=== PATIENT | female | born 1990 | race Caucasian/White ===

== ENCOUNTER 2017-02-09 16:11 | Emergency (ER) | payer OTHER ==
[2017-02-09 16:19] VITALS: BP 130/87
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
== END 2017-02-09 17:20 | disposition home or self-care (01) ==
LOC: ER 16:11
DX: M54.89 Other dorsalgia (principal); V89.2XXA Person injured in unspecified motor-vehicle accident, traffic, initial encounter
CPT/HCPCS: 99283

== ENCOUNTER → 2018-12-16 | Outpatient (CLI) | payer BC ==
--- NOTE | 2018-12-16 16:10 | RADIOLOGY REPORT (SQ) ---
EXAM DESCRIPTION: HYSTEROSALPINGOGRAM; HYSTERO CATH/INJECTION COMPLETED DATE/TIME: 12/16/2018 3:56 pm REASON FOR STUDY: INFERTILITY COMPARISON: None. PROCEDURE: PRE-PROCEDURE: Procedure was explained to the patient. She was told to expect cramping du ring the procedure, and possible spotting post procedure. PROCEDURE: The cervix was prepped in sterile fashion. Under direct visual inspection, the cervix was cannulated with the hysterosalpingogram catheter and contrast injected. TECHNIQUE: Temporal fluoroscopic images acquired during the procedure stored to PACS. FLUOROSCOPY TIME: Less than 3 seconds 8 digital fluoroscopic images saved to PACS. LIMITATIONS: None. FINDINGS: UTERUS: No identified anomalies. No synechia. RIGHT ADNEXA: Normal size fallopian tube. Free spill of contrast into the peritoneal cavity. LEFT ADNEXA: Normal size fallopian tube. Free spill of contrast into the peritoneal cavity. POST PROCEDURE: The patient tolerated the procedure with no adverse effects. IMPRESSION: NORMAL HYSTEROSALPINGOGRAM. COMMENT: Quality ID 145: Final reports for procedures using fluoroscopy that document radiation exp osure indices, or exposure time and number of fluorographic images (if radiation exposure indices are not available) TECHNICAL DOCUMENTATION: JOB ID: [id number] [employer]- All Rights Reserved Reading location - IP/workstation name: [email or web address]
--- NOTE | 2018-12-16 16:10 | RADIOLOGY REPORT (SQ) ---
EXAM DESCRIPTION: HYSTEROSALPINGOGRAM; HYSTERO CATH/INJECTION COMPLETED DATE/TIME: 12/16/2018 3:56 pm REASON FOR STUDY: INFERTILITY COMPARISON: None. PROCEDURE: PRE-PROCEDURE: Procedure was explained to the patient. She was told to expect cramping du ring the procedure, and possible spotting post procedure. PROCEDURE: The cervix was prepped in sterile fashion. Under direct visual inspection, the cervix was cannulated with the hysterosalpingogram catheter and contrast injected. TECHNIQUE: Temporal fluoroscopic images acquired during the procedure stored to PACS. FLUOROSCOPY TIME: Less than 3 seconds 8 digital fluoroscopic images saved to PACS. LIMITATIONS: None. FINDINGS: UTERUS: No identified anomalies. No synechia. RIGHT ADNEXA: Normal size fallopian tube. Free spill of contrast into the peritoneal cavity. LEFT ADNEXA: Normal size fallopian tube. Free spill of contrast into the peritoneal cavity. POST PROCEDURE: The patient tolerated the procedure with no adverse effects. IMPRESSION: NORMAL HYSTEROSALPINGOGRAM. COMMENT: Quality ID 145: Final reports for procedures using fluoroscopy that document radiation exp osure indices, or exposure time and number of fluorographic images (if radiation exposure indices are not available) TECHNICAL DOCUMENTATION: JOB ID: [id number] [employer]- All Rights Reserved Reading location - IP/workstation name: [email or web address]
== END ==
LOC: RAD 15:12
PROVIDERS: ATTEND Student in an Organized Health Care Education/Training Program
DX: N97.9 Female infertility, unspecified (principal)
CPT/HCPCS: 58340; 74740

== ENCOUNTER → 2019-01-08 | Outpatient (CLI) | payer BC ==
--- NOTE | 2019-01-08 09:50 | RADIOLOGY REPORT (SQ) ---
EXAM DESCRIPTION: CT ABD/PELVIS WITH IV ORAL COMPLETED DATE/TIME: 01/08/2019 9:27 am REASON FOR STUDY: OVARIAN MASS COMPARISON: 2016 CT. Ultrasound pelvis 2012. TECHNIQUE: CT scan of the abdomen and pelvis performed with intravenous and oral contrast using ivet mark scanning technique with dynamic intravenous contrast injection. Images reviewed with lung, soft t issue, and bone windows. Reconstructed coronal and sagittal MPR images reviewed. Delayed images for e valuation of the urinary system also acquired. All images stored on PACS. All CT scanners at this facility use dose modulation, iterative reconstruction, and/or weight based d osing when appropriate to reduce radiation dose to as low as reasonably achievable (ALARA). [facility]: Dose Right [facility]: CareDose [facility]: Dose Right [facility]: Teradose 4D [facility]: Brazzlebox CONTRAST TYPE AND DOSE: contrast/concentration: Isovue 350.00 mg/ml; Total Contrast Delivered: 78.0 ml; Total Saline Delivered: 67.0 ml RENAL FUNCTION: None required. The patient is less than 50 years old. RADIATION DOSE: CT Rad equipment meets quality standard of care and radiation dose reduction techniq ues were employed. CTDIvol: 4.5 - 5.1 mGy. DLP: 523 mGy-cm.. LIMITATIONS: None. FINDINGS: LOWER CHEST: No significant findings. No nodules or infiltrates. LIVER: Normal size. No masses. No dilated ducts. SPLEEN: Normal size. No focal lesions. PANCREAS: No masses. No significant calcifications. No adjacent inflammation or peripancreatic fluid collections. Pancreatic duct not dilated. GALLBLADDER: No identified stones by CT criteria. No inflammatory changes to suggest cholecystitis. ADRENAL GLANDS: No significant masses or asymmetry. RIGHT KIDNEY AND URETER: No solid masses. No significant calcification. No hydronephrosis or hydroure ter. LEFT KIDNEY AND URETER: Nonobstructive mid renal nephrolithiasis, sub 4 mm stone. No mass. AORTA AND VESSELS: No aneurysm. No dissection. Renal arteries, SMA, celiac without stenosis. RETROPERITONEUM: No evidence of retroperitoneal mass or adenopathy. BOWEL AND PERITONEAL CAVITY: Large amount of stool in the proximal 2/3 of the colon. No small bowel obstruction. No ascites or abnormal gas. APPENDIX: Normal. PELVIS: Bladder unremarkable. Chronic left ovarian mass measures up to 4.7 cm maximal dimension. In ternal Hounsfield units of the lowest density portion approach 40. This lesion was present on prior study but had more simple Hounsfield units suggesting cystic nature previously. Small adjacent folli cles are likely. No pelvic free fluid. ABDOMINAL WALL: No masses. No hernias. BONES: No significant or acute findings. OTHER: No other significant finding. IMPRESSION: 1. Left ovarian region mass is chronic, seen in 2016. At that time, this looks like a simple cyst. On today's study, however this is not clearly a simple cyst. If the patient has not had recent pelvi c ultrasound, this would be warranted to further evaluate and characterize. 2. Other findings as above. Includes chronic nonobstructive left nephrolithiasis. There is also con siderable stool retention. No ascites, urinary obstruction or bowel obstruction evident. TECHNICAL DOCUMENTATION: JOB ID: [id number] Quality ID # [id number]: Final reports with documentation of one or more dose reduction techniques (e.g., Au tomated exposure control, adjustment of the mA and/or kV according to patient size, use of iterative reconstruction technique) 2010 [employer]- All Rights Reserved Reading location - IP/workstation name: [email or web address]
== END ==
LOC: RAD 08:50
PROVIDERS: ATTEND Student in an Organized Health Care Education/Training Program
DX: R19.09 Other intra-abdominal and pelvic swelling, mass and lump (principal); N97.9 Female infertility, unspecified
CPT/HCPCS: 74177

== ENCOUNTER 2019-01-30 05:32 | Day surgery (SDC) | payer BC ==
[2019-01-24 12:09] LABS: APPEARANCE,URINE CLEAR; BILIRUBIN,URINE NEGATIVE (NEGATIVE); COLOR,URINE YELLOW; GLUCOSE, URINE NEGATIVE (NEGATIVE); KETONES,URINE NEGATIVE (NEGATIVE); LEUKOCYTE ESTERASE,URINE NEGATIVE (NEGATIVE); NITRITE,URINE NEGATIVE (NEGATIVE); PROTEIN,URINE NEGATIVE (NEGATIVE); URINE SPECIFIC GRAVITY 1.013; UROBILINOGEN,URINE NEGATIVE mg/dL (<2.0)
[2019-01-24 12:15] LABS: HEMATOCRIT 42.5 % (36.0-47.0); HEMOGLOBIN 14.7 g/dL (12.0-15.5); MEAN CORPUSCULAR HEMOGLOBIN 29.2 pg (27.0-33.4); MEAN CORPUSCULAR HGB CONC 34.5 g/dL (32.0-36.0); MEAN CORPUSCULAR VOLUME 85 fl (80-97); PLATELET COUNT 227 10^3/uL (150-450); RED BLOOD COUNT 5.03 10^6/uL (3.72-5.28); RED CELL DISTRIBUTION WIDTH 12.6 % (11.5-14.0); WHITE BLOOD COUNT 5.3 10^3/uL (4.0-10.5)
[~2019-01-30 05:32] MED LIST: LIDOCAINE 0.5% INJ-PF (5 MG/ML) 50 ML SDV SUBCUT PRN; SCOPOLAMINE HYDROBROMIDE 1.5 MG PATCH.TD72 ONE; SCOPOLAMINE HYDROBROMIDE 1.5 MG PATCH.TD72 TD PRN
[2019-01-30] MEDS ORDERED: FENTANYL CITRATE INJ/PF 100 MCG/2 ML AMPUL ONE (06:56)
[2019-01-30] MEDS ORDERED: PROPOFOL INJ 200 MG/20 ML VIAL IV ONE (06:56)
[2019-01-30] MEDS ORDERED: ACETAMINOPHEN 1,000 MG/100 ML RTUPB IV ONE (06:56)
[2019-01-30] MEDS ORDERED: PROMETHAZINE HCL INJ 25 MG/1 ML VIAL ONE (06:56)
[2019-01-30] MEDS ORDERED: MIDAZOLAM 2 MG/2 ML INJ ONE (06:56)
[2019-01-30] MEDS ORDERED: HYDROMORPHONE HCL INJ/PF 2 MG/ML AMPULE ONE (06:56)
[2019-01-30] MEDS ORDERED: LIDOCAINE 2% INJ (20 MG/ML) 20 ML MDV ONE (06:57)
[2019-01-30] MEDS ORDERED: FENTANYL CITRATE INJ/PF 100 MCG/2 ML AMPUL IV PRN ×3 (07:53)
[2019-01-30] MEDS ORDERED: DIPHENHYDRAMINE HCL 50 MG/ML VIAL IV PRN (07:53)
[2019-01-30] MEDS ORDERED: PROMETHAZINE HCL INJ 25 MG/1 ML VIAL IV PRN ×2 (07:53)
[2019-01-30] MEDS ORDERED: MORPHINE SULFATE 10 MG/ML INJ IV PRN (07:53)
[2019-01-30] MEDS ORDERED: ONDANSETRON HCL INJ/PF 4 MG/2 ML SDV IV PRN (07:53)
[2019-01-30] MEDS ORDERED: MEPERIDINE HCL/PF INJ 25 MG/1 ML DISP.SYRIN IV PRN (07:53)
[2019-01-30] MEDS ORDERED: SUCCINYLCHOLINE CHLORIDE INJ 200 MG/10 ML VIAL ONE (10:00)
[2019-01-30] MEDS ORDERED: DEXAMETHASONE SOD PHOSPHATE INJ 4 MG/1 ML VIAL ONE (10:00)
[2019-01-30] MEDS ORDERED: METOCLOPRAMIDE HCL INJ/PF 10 MG/2 ML SDV ONE (10:00)
[2019-01-30] MEDS ORDERED: ONDANSETRON HCL INJ/PF 4 MG/2 ML SDV ONE (10:00)
[2019-01-30] MEDS ORDERED: KETOROLAC TROMETHAMINE 60 MG/2 ML SDV ONE (10:00)
[2019-01-30] MEDS ORDERED: ROCURONIUM BROMIDE INJ 50 MG/5 ML VIAL IV ONE (10:00)
[2019-01-30] MEDS: FENTANYL CITRATE INJ/PF 100 MCG/2 ML AMPUL ONE ×2 (10:17→10:30)
[2019-01-30] MEDS ORDERED: MORPHINE SULFATE 10 MG/ML INJ IM PRN (10:50)
[2019-01-30] MEDS ORDERED: PROMETHAZINE HCL INJ 25 MG/1 ML VIAL IM PRN (10:51)
[2019-01-30] MEDS ORDERED: IBUPROFEN 800 MG TABLET PO PRN (10:51)
[2019-01-30] MEDS ORDERED: OXYCODONE-ACETAMINOPHEN 5-325 MG TABLET PO PRN ×2 (10:52)
[2019-01-30] MEDS ORDERED: DIPHENHYDRAMINE HCL 50 MG/ML VIAL ONE (11:00)
[2019-01-30] MEDS ORDERED: IBUPROFEN 800 MG TABLET ONE (11:11)
--- NOTE | 2019-01-30 13:34 | OPERATIVE REPORT E ---
Operative Report NAME: [facility]MM YOUNGER : 1990 AGE: 28Y DATE OF SURGERY: 01/30/2019 ROOM: PREOPERATIVE DIAGNOSIS: Left ovarian cyst. POSTOPERATIVE DIAGNOSIS: Left ovarian endometrioma with stage 3 endometriosis. OPERATION: Robotic-assisted left ovarian cystectomy with fulguration of endometriosis and lysis of adhesions and diagnostic laparoscopy. SURGEON: ONOFRE MCCLOUD M.D. MELTER CLERK: Consuelo Rogers [facility] operating room surgical technologist ANESTHESIA: Mya Heredia M.D. with general. FINDINGS: Large 5 to 6 cm, smooth-appearing left ovarian cyst with an appearance of being filled with blood that did in fact leak old blood during the procedure. Some adhesions of the omentum to the upper right abdominal anterior wall. Significant endometriosis in the posterior cul-de-sac that obliterated the left uterosacral ligament and multiple implants on the right uterosacral ligament and pelvic sidewall. There was a small amount of suspected endometriosis in the anterior cul-de-sac. I inspected the upper quadrants of the abdomen and did not note any endometrial implants. The bowel was inspected and no implants found on the bowel. COMPLICATIONS: None. ESTIMATED BLOOD LOSS: Approximately 50 mL. SPECIMENS REMOVED: Left ovarian cyst and multiple biopsies of the posterior cul-de-sac. PROCEDURE IN DETAIL: The patient was taken to the operating room, prepared, and draped in the normal sterile fashion in a dorsal lithotomy position. Under sterile conditions a Bo catheter was placed to gravity. A speculum was then placed into the vagina and the cervix was prepped with Betadine. A Hulka clamp was placed to the cervix for uterine manipulation. Gloves were changed after the speculum was removed, and attention was turned to the upper portion of the case. Umbilical skin incision was made to accommodate a GelPort which was placed after the fascia was transected using Mayos without difficulty. The GelPort was placed. The abdomen was inflated through the AirSeal that was inserted into the GelPort prior to placement, and the patient was placed in Trendelenburg. The robotic camera was then introduced and the above findings were noted. Under direct visualization a 5 mm port was placed on the patient's left and right approximately 10 cm on either side of the umbilicus. Bipolar Maryland's were placed on the left and monopolar scissors were placed on the right. I then unscrubbed and sat at the console where I began with inspection of the posterior cul-de-sac and noted multiple implants. Pictures were taken at this time to document the implants. The implants were then fulgurated as much as possible, and several biopsies were taken using monopolar scissors and Maryland's as needed for tenting the peritoneum. These biopsies were passed through individually through the assistance port and placed in formalin. I inspected the left uterosacral ligament and found it to be completely obliterated; therefore, very minimal fulguration was performed here as it was noted to be too significant for a surgical intervention at this time. The anterior cul-de-sac was inspected and 1 small area gunpowder lesion of endometriosis was carefully fulgurated using the bipolar Maryland's. Attention was then turned to the left ovary and the cystectomy. The ovary surface was scored using the monopolar scissors. We did have a significant amount of friability with this cyst but the cyst wall was located and the cyst was then carefully shelled out. Unfortunately, during the attempted removal, the cyst wall, being as friable as it was, did rupture with just slight palpation. However, we were able to continue to shell out the rest of the cyst, and this was done using both some blunt dissection as well as sharp dissection using the monopolar scissors and Maryland's as needed. Hemostasis was maintained using the bipolar Maryland's. Once the cyst was completely freed from the ovary, the cyst was then placed in an EndoCatch bag for removal at a later time. This was placed in the posterior cul-de-sac. The monopolar scissors were then traded out with a K[employer] and a 3-0 Vicryl was introduced through the assistance port, and this was used to close the ovarian tissue and maintain hemostasis in a running fashion along the anterior aspect of the ovary. Once this was completed the ovary was then wrapped in INTERCEED. I then turned my attention to the rest of the posterior cul-de-sac. I had noted at the beginning of the procedure that there was a small fibroid on the posterior aspect of the uterus. It looked to be very small, maybe 0.5 cm at the largest. This was covered in endometrial implants and I did fulgurate this as best I could. I did not perform a myomectomy. However, due to the fulguration and the endometrial implants I did wrap the posterior aspect of the uterus near this fibroid as well as the posterior cul-de-sac in INTERCEED in order to try to prevent adhesion formation. Once this was concluded I inspected the ureters and found them to be without evidence of injury. The ports were then removed. The GelPort was removed and the specimen was removed with the EndoCatch bag through the GelPort. The GelPort was then completely removed at this point, and the fascia was closed with 0 Vicryl in a running fashion. The skin was closed with 4-0 Vicryl at all 3 sites. The patient tolerated the procedure well. Sponge, lap, and needle counts were correct x2, and the patient was taken to recovery in stable condition. DICTATING PHYSICIAN: ONOFRE MCCLOUD M.D. [id number] PHY#: [id number] ID: [id number] JOB#: [id number] ACCT: [id number] cc:ONOFRE MCCLOUD M.D. >
[2019-01-30 16:13] VITALS: BP 112/80
== END 2019-01-30 13:15 | disposition home or self-care (01) ==
LOC: OROUT 05:32
PROVIDERS: ATTEND Obstetrics & Gynecology
DX: N80.3 Endometriosis of pelvic peritoneum (principal); N80.1 Endometriosis of ovary; N83.12 Corpus luteum cyst of left ovary; K66.0 Peritoneal adhesions (postprocedural) (postinfection); D25.9 Leiomyoma of uterus, unspecified; Z32.02 Encounter for pregnancy test, result negative; R10.2 Pelvic and perineal pain; Z88.0 Allergy status to penicillin
CPT/HCPCS: 58662; 86900; 86901; 36415 ×2; 86850; 85027; 81005; 81025; 88305 ×2; 88307 ×2; 88313 ×2; C1765; J2250; J3490 ×2; J1100; J1200; J1885; J3010; J2765; J1170; J2550; J0330; J2405; J2704; J0131; 840

== ENCOUNTER 2019-12-11 05:33 | Day surgery (SDC) | payer BC ==
[2019-12-05 11:33] LABS: HEMATOCRIT 40.3 % (36.0-47.0); MEAN CORPUSCULAR HEMOGLOBIN 29.1 pg (27.0-33.4); MEAN CORPUSCULAR HGB CONC 34.6 g/dL (32.0-36.0); MEAN CORPUSCULAR VOLUME 84 fl (80-97); PLATELET COUNT 259 10^3/uL (150-450); RED BLOOD COUNT 4.79 10^6/uL (3.72-5.28); RED CELL DISTRIBUTION WIDTH 13.3 % (11.5-14.0); WHITE BLOOD COUNT 5.2 10^3/uL (4.0-10.5)
[2019-12-05 11:49] LABS: APPEARANCE,URINE CLEAR; BILIRUBIN,URINE NEGATIVE (NEGATIVE); COLOR,URINE STRAW; GLUCOSE, URINE NEGATIVE (NEGATIVE); KETONES,URINE NEGATIVE (NEGATIVE); LEUKOCYTE ESTERASE,URINE NEGATIVE (NEGATIVE); NITRITE,URINE NEGATIVE (NEGATIVE); PROTEIN,URINE NEGATIVE (NEGATIVE); URINE SPECIFIC GRAVITY 1.005; UROBILINOGEN,URINE NEGATIVE mg/dL (<2.0)
[~2019-12-11 05:33] MED LIST changes: +LACTATED RINGERS 1000 ML IV PRN; -SCOPOLAMINE HYDROBROMIDE 1.5 MG PATCH.TD72 ONE; -SCOPOLAMINE HYDROBROMIDE 1.5 MG PATCH.TD72 TD PRN
[2019-12-11] MEDS ORDERED: MIDAZOLAM 2 MG/2 ML INJ ONE (06:54)
[2019-12-11] MEDS ORDERED: PROPOFOL INJ 200 MG/20 ML VIAL IV ONE (06:54)
[2019-12-11] MEDS ORDERED: FENTANYL CITRATE INJ/PF 250 MCG/5 ML AMPULE ONE (06:54)
[2019-12-11] MEDS ORDERED: FAMOTIDINE INJ/PF 20 MG/2 ML SDV IV ONE (07:08)
[2019-12-11] MEDS ORDERED: SCOPOLAMINE HYDROBROMIDE 1.5 MG PATCH.TD72 ONE (07:08)
[2019-12-11] MEDS ORDERED: METHYLENE BLUE 50 MG/10 ML AMPULE ONE (07:48)
[2019-12-11] MEDS ORDERED: MORPHINE SULFATE 10 MG/ML INJ IV PRN ×2 (07:56→10:03)
[2019-12-11] MEDS ORDERED: PROMETHAZINE HCL INJ 25 MG/1 ML VIAL IV PRN (07:56)
[2019-12-11] MEDS ORDERED: MEPERIDINE HCL/PF INJ 25 MG/1 ML DISP.SYRIN IV PRN (07:56)
[2019-12-11] MEDS ORDERED: DIPHENHYDRAMINE HCL 50 MG/ML VIAL IV PRN (07:56)
[2019-12-11] MEDS ORDERED: FENTANYL CITRATE INJ/PF 100 MCG/2 ML AMPUL IV PRN ×3 (07:56)
[2019-12-11] MEDS ORDERED: PROMETHAZINE HCL INJ 25 MG/1 ML VIAL ONE (09:30)
[2019-12-11] MEDS ORDERED: ROCURONIUM BROMIDE INJ 50 MG/5 ML VIAL IV ONE (09:43)
[2019-12-11] MEDS ORDERED: DEXAMETHASONE SOD PHOSPHATE INJ 4 MG/1 ML VIAL ONE (09:43)
[2019-12-11] MEDS ORDERED: METOCLOPRAMIDE HCL INJ/PF 10 MG/2 ML SDV ONE (09:43)
[2019-12-11] MEDS ORDERED: ONDANSETRON HCL INJ/PF 4 MG/2 ML SDV ONE (09:43)
[2019-12-11] MEDS ORDERED: NEOSTIGMINE METHYLSULFATE 10 MG/10 ML VIAL ONE (09:43)
[2019-12-11] MEDS ORDERED: GLYCOPYRROLATE 1 MG/5 ML VIAL ONE (09:43)
[2019-12-11] MEDS ORDERED: KETOROLAC TROMETHAMINE 60 MG/2 ML SDV ONE (09:43)
[2019-12-11] MEDS ORDERED: ACETAMINOPHEN 1,000 MG/100 ML RTUPB IV ONE (10:01)
[2019-12-11] MEDS ORDERED: IBUPROFEN 800 MG TABLET PO PRN (10:04)
[2019-12-11] MEDS ORDERED: OXYCODONE-ACETAMINOPHEN 5-325 MG TABLET PO PRN ×2 (10:05→10:06)
--- NOTE | 2019-12-11 10:21 | Operative Report ---
Operative Report DATE OF SURGERY: 12/11/19 PREOPERATIVE DIAGNOSIS: hemorrhagic left ovarian cyst, pelvic adhesive disease, endometriosis POSTOPERATIVE DIAGNOSIS: same OPERATION: Robotic assisted left ovarian cystectomy with lysis of adhesions SURGEON: ONOFRE MCCLOUD 1ST CLOTH COVERER: EVE STEVENS ANESTHESIA: GA TISSUE REMOVED OR ALTERED: Left ovarian cyst COMPLICATIONS: None ESTIMATED BLOOD LOSS: 50 cc INTRAOPERATIVE FINDINGS: Evidence of endometrial scarring on the left pelvic sidewall, adhesions of the left ovary to the pelvic sidewall and the lateral side of the uterus, pelvic adhesions of the uterus to the rectum, half a centimeter hardened lesion in the retropelvic space just above the right uterosacral ligament most likely consistent with endometriosis lesion. Both fallopian tubes were patent by evidence of positive chromotubation. PROCEDURE: Patient was taken the operating room prepared and draped in normal sterile fashion in a dorsal lithotomy position. Sterile conditions a Bo catheter was placed to gravity. And a sterile speculum was placed into the vagina the cervix was grasped on the anterior aspect with a single-tooth tenaculum the cervix with was prepped with Betadine. Dilated to 7 mm and a HUMI manipulator was placed through the cervix. Chromotubation dye was then connected to the manipulator. Gloves were changed and attention was turned the upper portion of the case where umbilical skin incision was made following the patient's previous scar. This was carried through to the underlying layer fascia with the same scalpel. She was picked up with 2 [place]'s and transected with Que[place]ada scissors the fascial incision was then extended with the [place] scissors. The GelPort was placed in a normal fashion the abdomen was inflated with approximately 2-1/2 L of CO2 gas. The camera was introduced and the patient was placed in steep Trendelenburg under direct visualization 2 5 mm ports were placed on either side of the umbilicus. Was swept away and above findings were noted the robot was docked. Then unscrubbed and set at the console where beginning with the left adnexa was carefully inspected ring inspection precut chromotubation was performed and we did note free flow of blue dye through both fallopian tubes. The adhesions of the left ovary were freed on the superior aspect first. And then noted a small yuan in the ovarian wall and the cyst was material was noted via this neck. For following this plane the cyst was dissected out. Fortunately the cyst did rupture during this process and these contents was copiously irrigated and suctioned out. The rest of the cyst wall was removed via blunt dissection and sharp dissection as needed with the monopolar scissors. Once the cyst was completely freed as best we could tell this was passed out of the out of the field via the assistance port., Continue to remove a small part to the cyst wall in a similar fashion and have these removed via the assistance port atraumatic grasper. This cut was completed attention was turned to the right adnexa and this was carefully inspected. A very small follicular appearing cyst on the right ovary this was left intact as it appeared benign and and" inconsequential. The posterior aspect of the uterus was noted to have several dense and filmy adhesions of the uterus to the rectum. These were taken down with some sharp and blunt dissection using the monopolar scissors. In the posterior cul-de-sac a piece of Interceed was placed for adhesion barrier. I then reinspected the left ovary and it was hemostatic . A piece of Interceed was placed inside the defect of the left ovary for adhesion barrier. The pelvic cavity was once again inspected chromotubation proved again to be patent. The abdomen was very copiously irrigated and suctioned in hopes to remove as much endometrial material as possible. Cyst at the beginning of the case did appear to be much larger than the patient's last 1. I would estimate that the this cyst was at least 11 to 12 cm. And did appear to be bilobed however both lobes were removed during this procedure. The remaining ovarian material did look normal. Case was then concluded sponge lap and needle counts were correct x2 and the patient was taken recovery in stable condition with the manipulator and the Bo removed before moving to the PACU.
[2019-12-11] MEDS: HYDROMORPHONE HCL INJ/PF 2 MG/ML AMPULE ONE ×2 (10:24→10:34)
[2019-12-11] MEDS ORDERED: OXYCODONE-ACETAMINOPHEN 5-325 MG TABLET ONE (11:15)
[2019-12-11 13:28] VITALS: BP 110/66
== END 2019-12-11 12:10 | disposition home or self-care (01) ==
LOC: OROUT 05:33
PROVIDERS: ATTEND Obstetrics & Gynecology
DX: N83.202 Unspecified ovarian cyst, left side (principal); N80.1 Endometriosis of ovary; N80.3 Endometriosis of pelvic peritoneum; N73.6 Female pelvic peritoneal adhesions (postinfective)
CPT/HCPCS: 58662; S2900; 36415; 81001; 81025; 840; 85027; 86850; 86900; 86901; 88305; C1765; J0131; J1100; J1170; J1885; J2250; J2405; J2550; J2704; J2710; J2765; J3010; J3490; Q9968; S0028